=== PATIENT | female | born 1980 | race African-American/Black ===

== ENCOUNTER 2017-01-26 04:53 | Emergency (ER) | payer MEDICAID ==
[~2017-01-26] VITALS: Ht 170.2 cm; Wt 104.0 kg
[2017-01-26 07:30] VITALS: BP 159/80
== END 2017-01-26 09:14 | disposition home or self-care (01) ==
LOC: ER 04:53
DX: K94.09 Other complications of colostomy (principal); Y82.8 Other medical devices associated with adverse incidents; Y92.89 Other specified places as the place of occurrence of the external cause; Z88.6 Allergy status to analgesic agent; Z88.3 Allergy status to other anti-infective agents; R03.0 Elevated blood-pressure reading, without diagnosis of hypertension; L98.9 Disorder of the skin and subcutaneous tissue, unspecified
CPT/HCPCS: 99283; Z7610

== ENCOUNTER 2017-02-06 15:33 | Emergency (ER) | payer MEDICAID ==
[~2017-02-06] VITALS: Ht 170.2 cm; Wt 110.0 kg
[2017-02-06 17:45] VITALS: BP 142/88
== END 2017-02-06 18:13 | disposition home or self-care (01) ==
LOC: ER 15:53
DX: R45.1 Restlessness and agitation (principal); F12.10 Cannabis abuse, uncomplicated; C80.1 Malignant (primary) neoplasm, unspecified; Z93.3 Colostomy status; Z88.1 Allergy status to other antibiotic agents; Z88.6 Allergy status to analgesic agent
CPT/HCPCS: 99283

== ENCOUNTER 2017-02-06 21:29 | Emergency (ER) | payer MEDICAID ==
[~2017-02-06] VITALS: Ht 170.2 cm; Wt 100.0 kg
[2017-02-07 06:00] VITALS: BP 128/66
== END 2017-02-07 07:04 | disposition home or self-care (01) ==
LOC: ER 21:46
DX: R45.1 Restlessness and agitation (principal); F17.200 Nicotine dependence, unspecified, uncomplicated; C80.1 Malignant (primary) neoplasm, unspecified; Z93.3 Colostomy status; Z88.6 Allergy status to analgesic agent; Z88.1 Allergy status to other antibiotic agents
CPT/HCPCS: 99283; A4217; Z7610

== ENCOUNTER 2017-02-07 07:38 | Emergency (ER) | payer MEDICAID ==
[~2017-02-07] VITALS: Ht 165.1 cm; Wt 100.0 kg
[2017-02-07 07:43] VITALS: BP 120/97
[2017-02-07] MEDS ORDERED: CEPHALEXIN 500MG CAPSULE PO ONE (08:00)
[2017-02-07] MEDS ORDERED: SULFAMETHOXAZOLE/TRIMETHOPRIM 800/160MG TABLET PO ONE (08:00)
== END 2017-02-07 08:40 | disposition home or self-care (01) ==
LOC: ER 08:05
DX: L73.2 Hidradenitis suppurativa (principal); F17.200 Nicotine dependence, unspecified, uncomplicated; Z93.3 Colostomy status; Z88.6 Allergy status to analgesic agent; Z88.1 Allergy status to other antibiotic agents
CPT/HCPCS: 87070; 87077; 87186; 87205; 99284; 99406; Z7610

== ENCOUNTER 2018-04-27 05:10 | Emergency (ER) | payer MEDICAID ==
[~2018-04-27] VITALS: Ht 165.1 cm; Wt 100.0 kg
[~2018-04-27 05:10] MED LIST: LOSA50TA3 PO; NEOM28OI36 TOP; NITR100C PO
[2018-04-27 05:41] VITALS: BP 150/97
== END 2018-04-27 13:10 | disposition home or self-care (01) ==
LOC: ER 05:10
DX: Z43.3 Encounter for attention to colostomy (principal); M25.521 Pain in right elbow; Z88.1 Allergy status to other antibiotic agents; Z88.6 Allergy status to analgesic agent; W21.11XA Struck by baseball bat, initial encounter; Y93.89 Activity, other specified; Y92.89 Other specified places as the place of occurrence of the external cause; Y99.8 Other external cause status
CPT/HCPCS: 73070; 81025; 99284

== ENCOUNTER 2018-06-05 19:22 | Inpatient (IN) | payer MEDICAID ==
[~2018-06-05] VITALS: Ht 170.2 cm; Wt 95.3 kg
[2018-06-05] MEDS ORDERED: SODIUM CHLORIDE 0.9% 1,000 ML IV ONE (20:30)
[2018-06-05 20:56] LABS: BASOPHILS % 0.4 % (0.0-2.0); EOSINOPHILS % 5.9 % (0.0-5.0); HEMATOCRIT. 36.8 % (36.0-48.0); HEMOGLOBIN. 11.6 g/dL (12.0-16.0); LYMPHOCYTES % 19.3 % (20.0-50.0); MEAN CORPUSCULAR HEMOGLOBIN 24.2 pg (28.0-32.0); MEAN CORPUSCULAR VOLUME 76.6 fL (81.0-99.0); MEAN PLATELET VOLUME 7.8 fl (7.4-10.4); MONOCYTES % 12.5 % (2.0-8.0); NEUTROPHILS % 61.9 % (40.0-76.0); PLATELET 404 x1000/uL (130-400); RED CELL DISTRIBUTION WIDTH 18.7 % (11.6-14.6)
[2018-06-05 21:00] LABS: CHLORIDE 101 mEq/L (98-107)
[2018-06-05 21:28] LABS: CLARITY URINE TURBID (CLEAR); COLOR URINE DARK YELLOW (YELLOW); KETONES URINE 4+ (NEGATIVE); LEUKOCYTE ESTERASE URINE 3+ (NEGATIVE); NITRITE URINE NEGATIVE (NEGATIVE); OCCULT BLOOD URINE 3+ (NEGATIVE); PROTEIN URINE 2+ (NEGATIVE); SPECIFIC GRAVITY URINE 1.034 (1.005-1.030)
[2018-06-05] MEDS ORDERED: LEVOFLOXACIN 500MG PREMIX 100 ML IV ONE (21:30)
[2018-06-05] MEDS ORDERED: METRONIDAZOLE 500 MG PREMIX 100 ML IV ONE (21:30)
[2018-06-05] MEDS ORDERED: MORPHINE SULFATE 4 MG/ML CPJ (NOT FOR IM USE) IV ONE (21:30)
[2018-06-05 21:37] LABS: *BARBITURATES SCREEN URINE NEGATIVE (NEGATIVE); *BENZODIAZEPINES SCREEN URINE NEGATIVE (NEGATIVE); *COCAINE SCREEN URINE NEGATIVE (NEGATIVE); METHADONE URINE SCREEN NEGATIVE (NEGATIVE); OPIATES URINE SCREEN NEGATIVE (NEGATIVE)
[2018-06-05 21:56] LABS: *AMPHETAMINES SCREEN URINE PRESUMTIVE POSITIVE (NEGATIVE); CANNABINOID URINE SCREEN PRESUMTIVE POSITIVE (NEGATIVE); PHENCYCLIDINE URINE SCREEN PRESUMTIVE POSITIVE (NEGATIVE)
[2018-06-06] MEDS ORDERED: KCL 20MEQ/100ML PREMIX 100 ML IV ONE (02:30)
[2018-06-06 09:47] VITALS: BP 140/90
[2018-06-06 10:00] VITALS: BP 108/56
[2018-06-06] MEDS: ENOXAPARIN 30MG/0.3ML SYR SUBCUT SCH ×3 (11:00→20:19)
[2018-06-06] MEDS: HYDROCODONE/ACETAMINOPHEN 5/325MG TABLET PO PRN ×2 (11:58→20:19)
[2018-06-06 12:00] VITALS: BP 140/90
[2018-06-06] MEDS: GABAPENTIN 300MG CAPSULE PO SCH ×2 (14:33→20:19)
[2018-06-06 16:00] VITALS: BP 126/74
[2018-06-06 18:07] LABS: HEMATOCRIT. 31.8 % (36.0-48.0); HEMOGLOBIN. 10.2 g/dL (12.0-16.0); MEAN CORPUSCULAR HEMOGLOBIN 24.5 pg (28.0-32.0); MEAN CORPUSCULAR VOLUME 76.1 fL (81.0-99.0); MEAN PLATELET VOLUME 7.6 fl (7.4-10.4); PLATELET 410 x1000/uL (130-400); RED BLOOD CELL COUNT 4.18 mill/uL (4.2-5.4); RED CELL DISTRIBUTION WIDTH 18.3 % (11.6-14.6)
[2018-06-06 18:36] LABS: CHLORIDE 103 mEq/L (98-107)
[2018-06-06] MEDS ORDERED: METRONIDAZOLE 500 MG PREMIX 100 ML IV SCH (18:45)
[2018-06-06] MEDS: PANTOPRAZOLE 40MG DR TABLET PO SCH (19:23)
[2018-06-06] MEDS ORDERED: POTASSIUM CHLORIDE 20MEQ TABLET SR PO NR (19:30)
[2018-06-06 20:00] VITALS: BP 115/68
[2018-06-06 20:22] LABS: PLATELET ESTIMATE NORMAL
[2018-06-06] MEDS: METRONIDAZOLE 500 MG PREMIX 100 ML IV SCH (20:46)
[2018-06-06] MEDS ORDERED: METRONIDAZOLE 500MG TABLET PO SCH (22:00)
[2018-06-06] MEDS: LEVOFLOXACIN 500MG PREMIX 100 ML IV SCH (23:42)
[2018-06-07 00:03] VITALS: BP 124/79
[2018-06-07] MEDS: METRONIDAZOLE 500 MG PREMIX 100 ML IV SCH ×3 (03:24→20:18)
[2018-06-07 04:00] VITALS: BP 128/77
[2018-06-07] MEDS: GABAPENTIN 300MG CAPSULE PO SCH ×3 (05:05→20:19)
[2018-06-07] MEDS: HYDROCODONE/ACETAMINOPHEN 5/325MG TABLET PO PRN ×4 (05:06→20:34)
[2018-06-07 07:03] LABS: INR 1.2; PARTIAL THROMBOPLASTIN TIME 33.9 sec (23.4-31.0); PROTHROMBIN TIME 11.7 sec (9.1-11.1)
[2018-06-07 07:14] LABS: HEMATOCRIT 32.7 % (36.0-48.0); HEMOGLOBIN 10.4 g/dL (12.0-16.0)
[2018-06-07 07:33] LABS: TOTAL IRON BINDING CAPACITY 180 ug/dL (250-450)
[2018-06-07 08:00] VITALS: BP 116/70
[2018-06-07] MEDS: PANTOPRAZOLE 40MG DR TABLET PO SCH (08:44)
[2018-06-07] MEDS: ENOXAPARIN 30MG/0.3ML SYR SUBCUT SCH ×3 (08:45→21:00)
[2018-06-07] MEDS ORDERED: ENOXAPARIN 40MG/0.4ML SYR SUBCUT SCH (09:00)
[2018-06-07] MEDS ORDERED: POTASSIUM CHLORIDE INJ 40 MEQ in DEXT 5% WATER 250 ML IV SCH (12:00)
[2018-06-07 13:00] VITALS: BP 126/82
[2018-06-07 16:00] VITALS: BP 122/77
[2018-06-07 20:00] VITALS: BP 120/58
[2018-06-07] MEDS: LEVOFLOXACIN 500MG PREMIX 100 ML IV SCH (23:26)
[2018-06-08] VITALS: BP 117/76
[2018-06-08] MEDS: HYDROCODONE/ACETAMINOPHEN 5/325MG TABLET PO PRN ×4 (00:36→19:50)
[2018-06-08] MEDS: METRONIDAZOLE 500 MG PREMIX 100 ML IV SCH ×3 (03:31→19:46)
[2018-06-08 04:00] VITALS: BP 125/63
[2018-06-08] MEDS: GABAPENTIN 300MG CAPSULE PO SCH ×3 (05:29→19:46)
[2018-06-08 07:06] LABS: HEMOGLOBIN. 9.9 g/dL (12.0-16.0); MEAN CORPUSCULAR HEMOGLOBIN 24.2 pg (28.0-32.0); MEAN CORPUSCULAR VOLUME 75.9 fL (81.0-99.0); MEAN PLATELET VOLUME 7.3 fl (7.4-10.4); PLATELET 405 x1000/uL (130-400); RED BLOOD CELL COUNT 4.09 mill/uL (4.2-5.4); RED CELL DISTRIBUTION WIDTH 18.5 % (11.6-14.6)
[2018-06-08 07:22] LABS: HEMATOCRIT 31.1 % (36.0-48.0)
[2018-06-08 08:00] VITALS: BP 124/71
[2018-06-08] MEDS: PANTOPRAZOLE 40MG DR TABLET PO SCH (08:06)
[2018-06-08] MEDS: ENOXAPARIN 30MG/0.3ML SYR SUBCUT SCH ×2 (08:07→20:11)
[2018-06-08] MEDS: SODIUM HYPOCHLORITE 0.125% 473ML SOLUTION TOP SCH (08:07)
[2018-06-08 12:00] VITALS: BP 123/61
[2018-06-08 14:09] LABS: ATYPICAL LYMPHOCYTES 1; PLATELET ESTIMATE NORMAL
[2018-06-08 15:59] LABS: CHLORIDE 103 mEq/L (98-107)
[2018-06-08 16:00] VITALS: BP 117/65
[2018-06-08 20:00] VITALS: BP 118/58
[2018-06-08] MEDS ORDERED: POTASSIUM CHLORIDE 20MEQ TABLET SR PO NR (22:30)
[2018-06-09] VITALS: BP 126/68
[2018-06-09] MEDS: LEVOFLOXACIN 500MG PREMIX 100 ML IV SCH (00:10)
[2018-06-09] MEDS: HYDROCODONE/ACETAMINOPHEN 5/325MG TABLET PO PRN ×2 (00:10→08:37)
[2018-06-09] MEDS ORDERED: MORPHINE SULFATE 4 MG/ML CPJ (NOT FOR IM USE) IV SCH (02:49)
[2018-06-09] MEDS: METRONIDAZOLE 500 MG PREMIX 100 ML IV SCH ×2 (03:12→11:30)
[2018-06-09 04:00] VITALS: BP 113/69
[2018-06-09] MEDS: AMOXICILLIN 500 MG CAPSULE PO SCH ×2 (05:28→15:27)
[2018-06-09] MEDS: GABAPENTIN 300MG CAPSULE PO SCH ×2 (05:29→15:28)
[2018-06-09 08:00] VITALS: BP 121/74
[2018-06-09] MEDS: ENOXAPARIN 30MG/0.3ML SYR SUBCUT SCH (08:36)
[2018-06-09] MEDS: PANTOPRAZOLE 40MG DR TABLET PO SCH (08:36)
[2018-06-09] MEDS: SODIUM HYPOCHLORITE 0.125% 473ML SOLUTION TOP SCH (08:39)
[2018-06-09] MEDS ORDERED: NITROFURANTOIN 100MG M/M CAPSULE PO SCH (09:00)
[2018-06-09] MEDS ORDERED: SULFAMETHOXAZOLE/TRIMETHOPRIM 800/160MG TABLET PO SCH (09:00)
[2018-06-09 10:40] LABS: CHLORIDE 104 mEq/L (98-107)
[2018-06-09 12:00] VITALS: BP 124/67
[2018-06-09 16:00] VITALS: BP 122/58
[2018-06-09 16:24] VITALS: BP 124/67
[2018-06-10 04:20] LABS: OVA & PARASITE EXAM Final report (.)
== END 2018-06-09 19:25 | disposition home or self-care (01) | DRG 253 ==
LOC: ER 19:31 → EDBEDREQ 22:10 → EDBEDREQTM 22:10 → 7WST 06-06 07:10 → ENRESERV 06-06 07:10 → EDBEDREQ 06-06 08:26
PROVIDERS: ADMIT Internal Medicine; ATTEND Internal Medicine
DX: K92.2 Gastrointestinal hemorrhage, unspecified (principal); E43 Unspecified severe protein-calorie malnutrition; E66.01 Morbid (severe) obesity due to excess calories; D50.9 Iron deficiency anemia, unspecified; F12.10 Cannabis abuse, uncomplicated; F15.10 Other stimulant abuse, uncomplicated; F17.200 Nicotine dependence, unspecified, uncomplicated; N39.0 Urinary tract infection, site not specified; F19.10 Other psychoactive substance abuse, uncomplicated; L73.2 Hidradenitis suppurativa; K21.9 Gastro-esophageal reflux disease without esophagitis; Z93.3 Colostomy status; Z59.0 Homelessness; Z88.1 Allergy status to other antibiotic agents; Z88.6 Allergy status to analgesic agent; Z68.32 Body mass index [BMI] 32.0-32.9, adult; L02.91 Cutaneous abscess, unspecified; D62 Acute posthemorrhagic anemia
CPT/HCPCS: 36415; 71045; 74176; 80048; 80076; 80305; 82270; 82607; 82705; 82728; 82746; 83540; 83550; 85014; 85018; 87015; 87045; 87070; 87077; 87177; 87186; 87209; 87427; 87449; 87493; 89055; 93005; 99285; C1893; J1650; J1956; J2270; J3480; J3490; J7030; J7040; J7060